=== PATIENT | female | born 1950 | race Caucasian/White ===

== ENCOUNTER → 2016-12-27 | Outpatient (CLI) | payer MEDICARE, BC | LOC: MHCPAIN 09:56 | DX: G89.29 Other chronic pain (principal); M50.90 Cervical disc disorder, unspecified, unspecified cervical region; M54.81 Occipital neuralgia | CPT/HCPCS: G0463 ==

== ENCOUNTER → 2018-01-20 | Outpatient (CLI) | payer MEDICARE, BC | LOC: MC.RAD 12-29 14:20 | DX: Z12.31 Encounter for screening mammogram for malignant neoplasm of breast (principal) ==

== ENCOUNTER → 2018-08-10 | Outpatient (CLI) | payer MEDICARE, BC | LOC: COL.RAD 07:20 | DX: M47.894 Other spondylosis, thoracic region (principal); M51.34 Other intervertebral disc degeneration, thoracic region ==

== ENCOUNTER → 2018-09-09 | Outpatient (CLI) | payer MEDICARE, BC | LOC: MHCPAIN 08:09 | DX: G89.29 Other chronic pain (principal); M47.812 Spondylosis without myelopathy or radiculopathy, cervical region; M47.814 Spondylosis without myelopathy or radiculopathy, thoracic region | CPT/HCPCS: G0463 ==

== ENCOUNTER 2018-11-24 04:11 | Inpatient (IN) | payer MEDICARE, BC ==
[~2018-11-24] VITALS: Ht 157.5 cm; Wt 87.5 kg
[2018-11-24 04:33] LABS: BASO % 0.2 % (0.0-2.0); EOS % 0.2 % (0-4.0); GRAN # 7.7 (1.4-6.5); GRAN % 80.6 % (42.2-75.2); HEMATOCRIT 41.7 % (37.0-47.0); HEMOGLOBIN 14.2 g/dl (12.5-16.0); LYMPH % 10.4 % (20.0-51.0); MEAN CELL VOLUME 95 fl (80.0-100.0); MEAN CORPUSCULAR HEMOGLOBIN 32 pg (27.0-31.0); MEAN CORPUSCULAR HGB CONC 34 g/dl (33.0-37.0); MEAN PLATELET VOLUME 8.6 fl (7.4-10.4); MONO # 0.8 (0.1-0.6); MONO % 8.3 % (1.7-9.3); PLATELET COUNT 337 K/mm3 (130-400); RED BLOOD COUNT 4.39 M/mm3 (4.10-5.30); REDCELL DISTRIBUTION WIDTH-CV 11.8 % (11.5-14.5)
[2018-11-24 04:42] LABS: ALBUMIN 4.7 gm/dL (3.5-5.0); BILIRUBIN,TOTAL 3.2 mg/dL (0.0-1.0); CALCIUM 10.1 mg/dL (8.4-10.2); CREATININE, serum 0.79 mg/dL (0.52-1.25); POTASSIUM 4.1 mmol/L (3.4-5.0); TOTAL PROTEIN 8.1 gm/dL (6.4-8.2)
[2018-11-24] MEDS ORDERED: BONIVA150 MG PO (05:29)
[2018-11-24] MEDS ORDERED: BENTYL 10MG10 MG/CAP PO (05:29)
[2018-11-24] MEDS ORDERED: CELEXA 20MG20 MG/TAB PO (05:29)
[2018-11-24] MEDS ORDERED: PRILOSEC 20MG20 MG PO (05:30)
[2018-11-24] MEDS ORDERED: SYNTHROID 0.10.15 MG PO (05:30)
[2018-11-24] MEDS ORDERED: CALCIUM 600MG+D1 TAB PO (09:48)
[2018-11-24 11:40] VITALS: BP 129/77; PULSE 75; TEMP 98.3
[2018-11-24 15:32] VITALS: BP 131/60; PULSE 87; TEMP 98.3
--- NOTE | 2018-11-24 16:16 | NUR ---
SW met with patient to discuss discharge planning. Patient lives independently in [place]. Her daughter Vanessa also lives locally. Patients PCP is Dr Alonzo Douglas and [facility]. Patient does not have any anticipated discharge needs at this time however social work will continue to follow.
[2018-11-24 20:43] VITALS: BP 101/46; PULSE 75; TEMP 98.5
--- NOTE | 2018-11-24 22:20 | NUR ---
Pt in bed resting, shift assessments complete no problems found, left Pt call light in reach, bed in lowest position.
[2018-11-25] VITALS (7 sets, daily range): BP systolic 100–152; BP diastolic 55–75; PULSE 66–82; TEMP 97.2–98.8
[2018-11-25 06:17] LABS: BASO % 0.4 % (0.0-2.0); EOS # 0.1 (0.0-0.7); EOS % 1.7 % (0-4.0); GRAN % 62.3 % (42.2-75.2); LYMPH # 1.2 (1.2-3.4); LYMPH % 25.1 % (20.0-51.0); MEAN CELL VOLUME 96 fl (80.0-100.0); MEAN CORPUSCULAR HGB CONC 34 g/dl (33.0-37.0); MEAN PLATELET VOLUME 8.9 fl (7.4-10.4); MONO # 0.5 (0.1-0.6); MONO % 10.1 % (1.7-9.3); RED BLOOD COUNT 3.54 M/mm3 (4.10-5.30); REDCELL DISTRIBUTION WIDTH-CV 11.9 % (11.5-14.5)
[2018-11-25 06:30] LABS: HEMATOCRIT 33.8 % (37.0-47.0); HEMOGLOBIN 11.4 g/dl (12.5-16.0); MEAN CORPUSCULAR HEMOGLOBIN 32 pg (27.0-31.0); PLATELET COUNT 222 K/mm3 (130-400)
[2018-11-25 06:44] LABS: ALBUMIN 3.6 gm/dL (3.5-5.0); BILIRUBIN,TOTAL 1.9 mg/dL (0.0-1.0); CALCIUM 8.9 mg/dL (8.4-10.2); CREATININE, serum 0.63 mg/dL (0.52-1.25); TOTAL PROTEIN 6.4 gm/dL (6.4-8.2)
--- NOTE | 2018-11-25 07:26 | NUR ---
Pt slept well during the night, no C/O pain during the shift, her nausea returned this AM. her VS have been stable.
--- NOTE | 2018-11-25 07:30 | NUR ---
Patient verbalized she was nauseated and experiencing 3/10 pain. Requested medications for this and was provided with such. Has remained NPO.
--- NOTE | 2018-11-25 18:34 | NUR ---
Patient returned from PACU at 1750. Daughter reported that she is leaving due to weather. Patient has no complaints of pain or nausea, just feeling drowsy. Is laying on back with head slightly elevated. Lungs are clear. There are 4 incisions to abdomen covered with bandaids which are clean dry and intact. Patient returned to floor on 2L O2 which has been titrated to 1L and patient remains at 94%.
--- NOTE | 2018-11-25 19:49 | NUR ---
Pt resting in be has some C/O pain medication given, shift assessment complete without significant findings, 4X lap [facility] CDI, instructed in use of incentive inspirometer, Pt sucessfully used.
[2018-11-26 01:20] VITALS: BP 104/48; PULSE 71; TEMP 98.2
[2018-11-26 05:17] VITALS: BP 118/60; PULSE 69; TEMP 98.1
--- NOTE | 2018-11-26 05:37 | NUR ---
Pt slept well during the night, lap sites are CDI, she has no C/O pain just a little soreness where the incisions are, she has been using the incentive spirometer while awake with good success, her VS have been stable.
[2018-11-26 07:24] VITALS: BP 109/75; PULSE 69; TEMP 98
[2018-11-26 08:02] LABS: ALBUMIN 3.4 gm/dL (3.5-5.0); BILIRUBIN,TOTAL 0.9 mg/dL (0.0-1.0); CALCIUM 8.9 mg/dL (8.4-10.2); CREATININE, serum 0.64 mg/dL (0.52-1.25); POTASSIUM 3.9 mmol/L (3.4-5.0); TOTAL PROTEIN 6.2 gm/dL (6.4-8.2)
--- NOTE | 2018-11-26 08:34 | NUR ---
Assessment completed, alert/oriented, vital signs stable, reports mild tenderness in RUQ/ but overall pain is much better, she is tolerating some PO intake/ I have encouraged her to try a light breakfast, abdomen is soft and BS+, she reports passing flatus, heart RRR/distal pulses are palpable, lungs CTA/ no reps.difficulty noted, she independent and abmulating, denies other needs at this time, anticipate discharge sometime today
--- NOTE | 2018-11-26 10:37 | NUR ---
Follow up visit from the catheterization laboratory technician. No needs right now.
[2018-11-26 11:01] VITALS: BP 150/77; PULSE 71; TEMP 99.2
--- NOTE | 2018-11-26 14:14 | NUR ---
Discharge instructions discussed with patient, insturcted to follow up with as we have scheduled for her, diet restrictions and activity discussed, script for [place] given to her as well, IV removed, she is leaving with family, [facility] escorted her out hte door
== END 2018-11-26 14:24 | disposition home or self-care (01) | DRG 419 ==
LOC: COL.ER 04:11 → MEDICAL 06:07
PROVIDERS: Emergency Medicine; ADMIT Surgery
PROC: BF131ZZ Fluoroscopy of Gallbladder and Bile Ducts using Low Osmolar Contrast (ICD-10-PCS; 2018-11-25)
PROC: 0FT44ZZ Resection of Gallbladder, Percutaneous Endoscopic Approach (ICD-10-PCS; principal; 2018-11-25 15:30)
DX: K80.12 Calculus of gallbladder with acute and chronic cholecystitis without obstruction (principal)
CPT/HCPCS: A9284; G0378; J0690; J1100; J1885; J1956; J2270; J2405; J2550; J2704; J2710; J2765; J3010; J7030; J7120; Q9967

== ENCOUNTER 2021-10-27 10:16 | Emergency (ER) | payer MEDICARE, BC ==
[~2021-10-27] VITALS: Ht 157.5 cm; Wt 77.3 kg
[~2021-10-27 10:16] MED LIST: BENTYL 10MG10 MG/CAP PO; BONIVA150 MG PO; CALCIUM 600MG+D1 TAB PO; CELEXA 20MG20 MG/TAB PO; PRILOSEC 20MG20 MG PO; SYNTHROID 0.10.15 MG PO
[2021-10-27 13:37] VITALS: BP 159/87; PULSE 69; TEMP 97.4
== END 2021-10-27 13:38 | disposition home or self-care (01) ==
LOC: COL.ER 10:16
DX: S92.352A Displaced fracture of fifth metatarsal bone, left foot, initial encounter for closed fracture (principal); K21.9 Gastro-esophageal reflux disease without esophagitis; F32.A Depression, unspecified; Z79.899 Other long term (current) drug therapy; W19.XXXA Unspecified fall, initial encounter
CPT/HCPCS: 31865; L4386

== ENCOUNTER 2024-05-04 13:08 | Outpatient (CLI) | payer MEDICARE, BC ==
[~2024-05-04] VITALS: Ht 157.5 cm; Wt 83.8 kg
[~2024-05-04 13:08] MED LIST changes: -SYNTHROID 0.10.15 MG PO; +SYNTHROID0.112 MG/T PO
[2024-05-04] MEDS ORDERED: Denosumab 60 MG/ML SYRINGE SQ ONE (13:30)
[2024-05-04 13:33] VITALS: BP 134/81; PULSE 80; TEMP 97.6
[2024-05-04] MEDS ORDERED: PHARMASSURE MA500 MG PO (13:41)
[2024-05-04] MEDS ORDERED: WELLBUTRIN SR150 M1 PO (13:41)
[2024-05-04] MEDS ORDERED: BIOTIN10000 MC1 PO (13:42)
[2024-05-04] MEDS ORDERED: VITAMIN B12 781 TAB PO (13:42)
[2024-05-04] MEDS ORDERED: LIPITOR20 MG PO (13:43)
[2024-05-04] MEDS ORDERED: PROTONIX 40MG T40 MG PO (13:43)
[2024-05-04] MEDS ORDERED: ASPIRIN 81M81 MG/TA2 PO (13:44)
== END 2024-05-04 13:45 | disposition home or self-care (01) ==
LOC: EUO 13:08
DX: M81.0 Age-related osteoporosis without current pathological fracture (principal)
CPT/HCPCS: J0897